=== PATIENT | male | born 1940 | race Caucasian/White ===

== ENCOUNTER 2018-10-20 21:29 | Emergency (ER) | payer MEDICARE ==
[~2018-10-20] VITALS: Ht 185.4 cm; Wt 90.7 kg
[~2018-10-20 21:29] MED LIST: ASPIRIN EC81 MG PO; IBUPROFEN400 MG PO; LISINOPRIL-HCT1 EAC2 PO; NITROSTAT0.4 MG SL; PROPRANOLOL HCL20 MG PO; XANAX0.25 MG PO; ZYRTEC10 MG PO
[2018-10-20] MEDS ORDERED: LISINOPRIL10 MG PO (21:44)
[2018-10-20] MEDS ORDERED: PROPRANOLOL HCL10 MG PO (21:45)
== END 2018-10-20 22:43 | disposition home or self-care (01) ==
LOC: ED 21:29
DX: T88.1XXA Other complications following immunization, not elsewhere classified, initial encounter (principal); R06.02 Shortness of breath; M79.602 Pain in left arm; T50.Z95A Adverse effect of other vaccines and biological substances, initial encounter; I10 Essential (primary) hypertension; Z79.899 Other long term (current) drug therapy; Z79.82 Long term (current) use of aspirin
CPT/HCPCS: 99283

== ENCOUNTER 2021-01-18 08:50 | Emergency (ER) | payer MEDICARE ==
[~2021-01-18] VITALS: Ht 185.4 cm; Wt 93.0 kg
[~2021-01-18 08:50] MED LIST changes: +LISINOPRIL10 MG PO; +PROPRANOLOL HCL10 MG PO
[2021-01-18] MEDS ORDERED: FLOMAX0.4 MG PO (09:14)
[2021-01-18] MEDS ORDERED: MONTELUKAST SOD10 MG PO (09:15)
== END 2021-01-18 10:51 | disposition home or self-care (01) ==
LOC: ED 08:50
DX: R33.9 Retention of urine, unspecified (principal); K59.00 Constipation, unspecified; I10 Essential (primary) hypertension; Z79.899 Other long term (current) drug therapy; Z79.82 Long term (current) use of aspirin
CPT/HCPCS: 51702; 51798; 80048; 81001; 99283-25

== ENCOUNTER 2021-01-21 11:10 | Emergency (ER) | payer MEDICARE ==
[~2021-01-21] VITALS: Ht 185.4 cm; Wt 93.0 kg
[~2021-01-21 11:10] MED LIST changes: +FLOMAX0.4 MG PO; +MONTELUKAST SOD10 MG PO
--- OUTSIDE RECORDS SUMMARY | 2021-01-21 11:16 | XMS ---
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 Elmer has no Care Guidelines for this patient. [place] VIS[facility] COUNT (12 [address] [facility] 2 NOTE: Visits indicate total known visits. ED/C VISIT TRACKING (12 MO.) 01/21/2021 11:[address] [facility] [facility] [place] TYPE: Emergency COMPLAINT: - CATHETER REMOVAL 01/18/2021 08:50 [facility] [place] TYPE: Emergency COMPLAINT: - URINE PROBLEM INPATIENT VISIT TRACKING (12 MO.) 01/16/2021 09:[address] [facility] [address] Kristina [facility] TYPE: Surgical Services DIAGNOSES: - Presence of left artificial hip joint - Pain in left hip - Unilateral primary osteoarthritis, left hip [id number]
== END 2021-01-21 16:47 | disposition home or self-care (01) ==
LOC: ED 11:10
PROC: 0T9B70Z Drainage of Bladder with Drainage Device, Via Natural or Artificial Opening (ICD-10-PCS; principal; 2021-01-21)
PROC: 4A0D7LZ Measurement of Urinary Volume, Via Natural or Artificial Opening (ICD-10-PCS; 2021-01-21)
DX: R33.9 Retention of urine, unspecified (principal); Z46.6 Encounter for fitting and adjustment of urinary device; I10 Essential (primary) hypertension; Z79.899 Other long term (current) drug therapy; Z79.82 Long term (current) use of aspirin; Z85.828 Personal history of other malignant neoplasm of skin
CPT/HCPCS: 51702; 51798; 99283-25

== ENCOUNTER 2021-01-26 20:46 | Emergency (ER) | payer MEDICARE ==
[~2021-01-26] VITALS: Ht 185.4 cm; Wt 90.7 kg
--- OUTSIDE RECORDS SUMMARY | 2021-01-26 20:48 | XMS ---
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 Care History Medical/Surgical 01/22/2021 [facility] - Patient is currently established with [facility]. If patient is seen in the ED during business hours. Please contact CHWs at [facility]. Care Recommendation: If this patient has had 5 or more Emergency Department visits in the last 12 months.\T\nbsp; Patient will require education on the scope and purpose of the ED as an acute care provider not a Primary Care Provider and should not be utilized for chronic conditions.\T\nbsp; These are guidelines and the provider should exercise clinical judgment when providing care. E.D. VISIT COUNT (12 MO.) 3 [facility] TOTAL 3 NOTE: Visits indicate total known visits. ED/UCC VISIT TRACKING (12 MO.) 01/26/2021 20:[address] [facility] [place] TYPE: Emergency COMPLAINT: - BLEEDING FROM PENIS 01/21/2021 11:11 [facility] [place] TYPE: Emergency COMPLAINT: - RETENTION DIAGNOSES: - Essential (primary) hypertension - shelter (current) use of aspirin - Encounter for fitting and adjustment of urinary device - Retention of urine, unspecified - Personal history of other malignant neoplasm of skin - Other nursing home (current) drug therapy 01/18/2021 08:50 [facility] TYPE: Emergency COMPLAINT: - URINE PROBLEM DIAGNOSES: - Other nursing home (current) drug therapy - Retention of urine, unspecified - Essential (primary) hypertension - 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
== END 2021-01-27 00:23 | disposition home or self-care (01) ==
LOC: ED 20:46
DX: T83.83XA Hemorrhage due to genitourinary prosthetic devices, implants and grafts, initial encounter (principal); R31.9 Hematuria, unspecified; M96.89 Other intraoperative and postprocedural complications and disorders of the musculoskeletal system; M79.89 Other specified soft tissue disorders; I10 Essential (primary) hypertension; Z85.828 Personal history of other malignant neoplasm of skin; Z79.899 Other long term (current) drug therapy; Z79.82 Long term (current) use of aspirin
CPT/HCPCS: 81001; 93971; 99284-25

== ENCOUNTER 2021-02-20 12:37 | Inpatient (IN) | payer MEDICARE ==
[~2021-02-20] VITALS: Ht 185.4 cm; Wt 91.2 kg
--- OUTSIDE RECORDS SUMMARY | 2021-02-20 12:44 | XMS ---
PreManage Notification: SHAYAN ESCOBEDO Security Tipple Mechanic Events No recent Security Events currently on file CRITERIA MET - [facility] - 2 Visits in 30 Days CARE PROVIDERS PATRICK FITZGERALD Internal Medicine 01/22/2021-Current PHONE: [phone] Elmer has no Care Guidelines for this patient. Care History Medical/Surgical 01/22/2021 [facility] - Patient is currently established with [facility]. If patient is seen in the ED during business hours. Please contact CHWs at [facility]. Care Recommendation: If this patient has had [...] providing care. E.D. VISIT COUNT (12 MO.) 4 [facility] TOTAL 4 NOTE: Visits indicate total known visits. ED/UCC VISIT TRACKING (12 MO.) 02/20/2021 12:38 [facility] [place] TYPE: Emergency COMPLAINT: - WEAKNESS, VOMITING, WHEEZING 01/26/2021 20:46 [facility] [place] TYPE: Emergency COMPLAINT: - BLEEDING FROM PENIS DIAGNOSES: - Personal history of other malignant neoplasm of skin - Other specified soft tissue disorders - Other manager long term care (current) drug therapy - Pain in left leg - long term acute care registered nurse (current) use of aspirin - Other intraoperative and postprocedural complications and disorders of the musculoskeletal system - Hemorrhage due to genitourinary prosthetic devices, implants and grafts, initial encounter - Hematuria, unspecified - Essential (primary) hypertension 01/21/2021 11:11 [facility] TYPE: Emergency COMPLAINT: - RETENTION DIAGNOSES: - Essential (primary) hypertension - long term acute care registered nurse (current) use of aspirin - Encounter for fitting and adjustment of urinary device - Retention of urine, unspecified - Personal history of other malignant neoplasm of skin - Other manager long term care (current) drug therapy 01/18/2021 08:50 [facility] TYPE: Emergency COMPLAINT: - URINE PROBLEM DIAGNOSES: - Other manager long term care (current) drug therapy - Retention of urine, unspecified - Essential (primary) hypertension - long term acute care registered nurse (current) use of aspirin - Constipation, unspecified INPATIENT VISIT TRACKING (12 MO.) 01/16/2021 09:18 [facility] Kristina [facility] TYPE: Surgical Services DIAGNOSES: - Presence of left artificial hip joint - Pain in left hip - Unilateral primary osteoarthritis, left hip [id number]
[2021-02-20] MEDS ORDERED: TRAZODONE HCL50 MG PO (13:42)
[2021-02-20] MEDS ORDERED: HYDROXYZINE HCL50 MG PO (13:42)
--- NOTE | 2021-02-20 17:03 | EKG ---
[facility] [address] [place] [address] Signed Sinus rhythm with 1st degree AV block Otherwise normal ECG When compared with ECG of 04-AUG-2017 08:52, Vent. rate has increased BY 40 BPM Confirmed by TAMELA GUTIÉRREZ MD ([id number] on 02/20/2021 5:02:57 PM Electronically Signed By: TAMELA GUTIÉRREZ MD 02/20/21 1703 PATIENT NAME: FANNYSHAYAN Electrocardiogram DATE OF : 38 PHYSICIAN: TAMELA GUTIÉRREZ MD REPORT #: [id number] REPORT IS CONFIDENTIAL AND NOT TO BE RELEASED WITHOUT AUTHORIZATION
--- NOTE | 2021-02-20 23:38 | NUR ---
ASSESSMENT COMPLETED. TELE HR SR @ 94. GCS 15, A&O X4. LUNGS CLEAR, HEART TONES REGULAR. ABD SOFT, NONTENDER, BOWEL TONES ACTIVE, PT STATES NORMAL. PT HAS CHRONIC BACK PAIN, 7/10, PRN PAIN MED PROVIDED. CMS INTACT. LEFT HIP HAS WELL HEALING SCAR. LEFT THIGH HAS LARGE, HEALING BRUISE. IV CDI, WNL, FLUSHED WELL. SCHEDULED MEDS PROVIDED. HEAT PACK PROVIDED FOR BACK. ICE WATER PROVIDED. IN ROOM. NO OTHER NEEDS AT THIS TIME. CALL LIGHT IN REACH.
--- NOTE | 2021-02-21 02:47 | NUR ---
ASSESSMENT, VS AND I&O COMPLETED. GCS 15, A&O X4. IV WNL, IV FLUIDS INFUSING PER ORDER. LUNGS CLEAR, HEART TONES REGULAR, HR SR @ 70. ABD SOFT, NONTENDER, PT STATES NORMAL, BOWEL TONES ACTIVE. HAMILTON WNL. CMS INTACT. LEFT THIGH BRUISE UNCHANGED. IN ROOM. CALL LIGHT IN REACH.
--- NOTE | 2021-02-21 04:00 | NUR ---
PT RESTING IN BED, EYES CLOSED. RR EVEN, UNLABORED. CALL LIGHT IN REACH, BED ALARM ON.
--- NOTE | 2021-02-21 04:35 | NUR ---
IN TO LET PT KNOW HIS CALLED TO CHECK IN, NO FURTHER NEEDS AT THIS TIME
--- NOTE | 2021-02-21 05:31 | NUR ---
VS AND I&O COMPLETED. PT DENIES PAIN. IV WNL, IV FLUIDS INFUSING PER ORDER. NO OTHER NEEDS AT THIS TIME. CALL LIGHT IN REACH, BED ALARM ON.
--- NOTE | 2021-02-21 07:45 | NUR ---
REPORT RECEIVED FROM NIGHT RN AND PT. CARE RESUMED. PT. IS ALERT AND ORIENTED. HE DENIES PAIN. IV SITE WNL AND FLUSHES. HAMILTON PATENT AND DRAINING CLEAR YELLOW URINE. LUNGS CLEAR THROUGHOUT. NO EDEMA PRESENT. DISCUSSED POC AND AMBULATING FREQUENTLY. PT. AGREEABLE. LEFT RESTING IN BED WITH AT BEDSIDE.
[2021-02-21] MEDS ORDERED: JOINT SUPPORT1 EACH PO (10:13)
[2021-02-21] MEDS ORDERED: IRON18 MG PO (10:13)
[2021-02-21] MEDS ORDERED: MELATIN3 MG PO (10:14)
[2021-02-21] MEDS ORDERED: ONE-A-DAY MAXI1 EACH PO (10:15)
[2021-02-21] MEDS ORDERED: SAW PALMETTO160 MG PO (10:17)
[2021-02-21] MEDS ORDERED: OMEGA-3 FISH1200 MG PO (10:17)
[2021-02-21] MEDS ORDERED: B COMPLEX1 EACH PO (10:17)
[2021-02-21] MEDS ORDERED: ZYRTEC10 MG PO (10:20)
--- NOTE | 2021-02-21 10:29 | NUR ---
patient given prn propranolol for tremors.
--- NOTE | 2021-02-21 11:44 | NUR ---
Patient just walked three laps around med/surg with this INSTRUCTOR BUSINESS EDUCATION.
--- NOTE | 2021-02-21 13:08 | NUR ---
PT ALERT, ORIENTED AND SITTING IN CHAIR WITH GIGI AT HIS SIDE. HAD SHORT VISIT, PT FELT A NEED TO WALK AND SAID HE HAD PUSHED CALL BUTTON FOR QUITE AWHILE WITH NO RESPONSE. GAVE BLESSING AND ENCOURAGEMENT AND HAD TOAN MCCRARY COME AND ATTEND TO PT. WILL FOLLOW NEEDED
--- NOTE | 2021-02-21 14:30 | NUR ---
Pt lives with hi [place]. Recent Total hip 4 weeks ago. Used walk er and cane, but no longer using. Pt walking during our assessment as he states he needs complete at least 4 laps each hour and does not wan to stop. Plans on discharge to home with tomorrow. Denies finacial issues and will dc to home with his to assist him.
--- NOTE | 2021-02-21 17:58 | NUR ---
PT. IS HERE FOR UROSEPSIS. URINE OUTPUT IS QUANITY SUFFICIENT THIS SHIFT. HAMILTON PATENT. PT. ALERT AND ORIENTED AND HAS AMBULATED WITH SBA EVERY COUPLE HOURS AROUND THE UNIT. LUNGS CLEAR. NO EDEMA PRESENT. PRESENT IN THE ROOM ALL DAY.
--- NOTE | 2021-02-21 19:41 | NUR ---
RECEIVED REPORT FROM DAY SHIFT RN. PATIENT IS RESTING IN RECLINER WATCHING TV. REMAINS IN THE ROOM. NO NEEDS NOTED. CALL LIGHT IN REACH.
--- NOTE | 2021-02-21 21:05 | NUR ---
ASSESMENT COMPLETED. VITALS TAKEN AND RECORDED. HAMILTON EMPTIED AND HAMILTON CARE COMPLETED. PATIENT DENIES ANY PAIN. INTAKE AND OUPUT RECORDED. PATIENT GIVEN PRN MEDICATION FOR TEMORS PER ORDER. PRN SLEEP MEDICATION GIVEN PER ORDER. ALL QUESTIONS ANSWER. TEA PROVIDED FOR AND PATIENT. IV INFUSING PER ORDER. NO FURTHER NEEDS NOTED. REMAINS IN THE ROOM. CALL LIGHT AND BELINGINGS WITHIN REACH.
--- NOTE | 2021-02-22 00:44 | NUR ---
PATIENT IS STRUGGLING TO REST AND APPEARS ANXIOUS. DISCUSSED OPTIONS WITH PATIENT. PATIENT GIVEN PRN MEDICATION FOR ANXIOUSNESS. PATIENT IS RESITNG IN RECLINER. REMAINS IN THE ROOM. IV INFUSING PER ORDER. NO FURTHER NEEDS NOTED. CALL LIGHT IN REACH.
--- NOTE | 2021-02-22 03:00 | NUR ---
PATIENT IS RESTING IN RECLINER WITH EYES CLOSED, RR 18. CALL LIGHT IN REACH. ASLEEP ON THE COUCH.
--- NOTE | 2021-02-22 05:19 | NUR ---
VITALS TAKEN AND RECORDED. INTAKE AND OUPUT RECORDED. NO PAIN OR NAUSEA NOTED. CALL LIGHT IN REACH.
--- NOTE | 2021-02-22 08:00 | NUR ---
REPORT RECEIVED FROM NIGHT RN AND PT. CARE RESUMED. PT. IS ALERT AND ORIENTED AND WALKING BEFORE BREAKFAST. IV SITE IS LEAKING AND IV PUMP PLACED IN STANDBY TO SEE IF HIS IV CAN BE DC'D IF DISCHARGE IS PLANNED. PT. HAS PITTING EDEMA PRESENT IN RLE THAT WAS NOT PRESENT YESTERDAY. LUNGS CLEAR. PT. DENIES PAIN. PT. EAGER TO BE DISCHARGED. DISCUSSED POC.
--- NOTE | 2021-02-22 11:57 | NUR ---
PT VERY ANXIOUS TO DC. BED IS VERY UNCOMFORTABLE, WANTING DR PASTOR TO COME. PT DID ACKNOWLEDGE THAT HIS URINE LOOKS BETTER, FEELS IMPROVEMENT. GAVE BLESSING
--- NOTE | 2021-02-22 12:19 | NUR ---
WENT INTO THE ROOM ASKED HIM IF HE WOULD LIKE TO TAKE A SHOWER AND HIS SAID HE DID HIS OWN WASH UP AND BRUSHED HIS TEETH AND WASHED HIS FACE. CHANGE LINENS ON HIS BED.
[2021-02-22] MEDS ORDERED: AUGMENTIN 875-1 EACH PO (13:25)
[2021-02-22] MEDS ORDERED: ONDANSETRON ODT4 MG SL (13:54)
--- NOTE | 2021-02-22 14:00 | NUR ---
PT. VOMITING. NOTIFIED. PRESCRIBED ZOFRAN FOR DISCHARGE.
--- NOTE | 2021-02-22 15:08 | NUR ---
ALL DISCHARGE INSTRUCTIONS REVIEWED WITH PT AND . PT. VERBALIZED UNDERSTANDING AND DEMONSTRATED TECHNIQUES FOR CARING FOR CATHETER. CATHETER BAG CHANGED. PT. LEFT WITH ALLBELONGINGS VIA WHEELCHAIR WITH AND NEEDLE STRAIGHTENER.
== END 2021-02-22 15:00 | disposition home or self-care (01) | DRG 698 ==
LOC: ED 12:37 → MS 21:00
PROVIDERS: ADMIT Internal Medicine; ATTEND Internal Medicine
DX: T83.511A Infection and inflammatory reaction due to indwelling urethral catheter, initial encounter (principal); A41.51 Sepsis due to Escherichia coli [E. coli]; E87.1 Hypo-osmolality and hyponatremia; N39.0 Urinary tract infection, site not specified; Z20.822 Contact with and (suspected) exposure to COVID-19; N40.1 Benign prostatic hyperplasia with lower urinary tract symptoms; R33.8 Other retention of urine; I10 Essential (primary) hypertension; R42 Dizziness and giddiness; G25.0 Essential tremor; F51.04 Psychophysiologic insomnia; F41.9 Anxiety disorder, unspecified; Z79.899 Other long term (current) drug therapy; Z79.82 Long term (current) use of aspirin; Z85.828 Personal history of other malignant neoplasm of skin; Z86.79 Personal history of other diseases of the circulatory system
CPT/HCPCS: 36415; 71045; 74177; 80048; 80053; 81001; 83605; 83735; 84484; 85025; 87077; 87088; 87186; 93005; 93010; 96375; 97110; 97162; 99285-25; C9803; J0696; J2060; J3480; Q0177; Q9967; U0003

== ENCOUNTER 2024-04-03 17:12 | Observation (INO) | payer MEDICARE ==
[~2024-04-03] VITALS: Ht 185.4 cm; Wt 97.0 kg
[~2024-04-03 17:12] MED LIST changes: +AUGMENTIN 875-1 EACH PO; +B COMPLEX1 EACH PO; +HYDROXYZINE HCL50 MG PO; +IRON18 MG PO; +JOINT SUPPORT1 EACH PO; +MELATIN3 MG PO; +OMEGA-3 FISH1200 MG PO; +ONDANSETRON ODT4 MG SL; +ONE-A-DAY MAXI1 EACH PO; +SAW PALMETTO160 MG PO; +TRAZODONE HCL50 MG PO
[2024-04-03] MEDS ORDERED: LINEZOLID600 MG PO (17:27)
[2024-04-03] MEDS ORDERED: IRBESARTAN75 MG PO (17:28)
[2024-04-03] MEDS ORDERED: OMEPRAZOLE40 MG PO (17:29)
[2024-04-03] MEDS ORDERED: ALBUTEROL/IPRATROPIUM 3 ML NEB INH PRN (17:30)
[2024-04-03 17:35] LABS: BASOPHILS 0.5 % (0-2); EOSINOPHILS 1.4 % (0-6); HEMATOCRIT 34.8 % (35.0-50.0); HEMOGLOBIN 11.7 g/dL (12.0-18.0); LYMPHOCYTES 9.3 % (24-44); MCH 33.3 (27-36); MCHC 33.7 g/dl (30-36); MCV 98.8 fl (81-99); MONOCYTES 12.3 % (0-12); NEUTROPHILS 76.5 % (39-80); PLATELET COUNT 354 K/uL (140-440); RBC 3.53 M/ul (4.3-5.7); RDW 12.3 (10.5-15.0)
[2024-04-03] MEDS ORDERED: ALBUTEROL SULFATE 0.5% 2.5 MG/0.5 ML VIAL INH ONE (17:45)
[2024-04-03 17:55] LABS: ALBUMIN 2.4 g/dL (3.4-5.0); ALBUMIN/GLOBULIN RATIO 0.57 (1.1-2.4); ANION GAP 12.2 (7-21); BILIRUBIN, TOTAL 0.7 ng/dL (0.2-1.0); BUN/CREATININE RATIO 12.37 (6.0-28.6); CALCIUM 8.2 mg/dL (8.5-10.1); CREATININE, SERUM 0.97 mg/dL (0.70-1.30); MAGNESIUM 1.9 mg/dL (1.8-2.4); POTASSIUM 4.2 mmol/L (3.5-5.1); PROTEIN, TOTAL 6.6 g/dL (6.4-8.2)
[2024-04-03] MEDS ORDERED: ACETAMINOPHEN 325 MG TAB PO PRN (21:15)
[2024-04-03] MEDS ORDERED: LACTATED RINGER'S 1,000 ML IV SCH (21:15)
[2024-04-03] MEDS ORDERED: hydrOXYzine pamoate 25 MG CAP PO PRN (21:15)
[2024-04-03] MEDS ORDERED: MELATONIN 3 MG TAB PO PRN (21:15)
[2024-04-03] MEDS ORDERED: LOSARTAN POTASSIUM 50 MG TAB PO SCH (21:30)
[2024-04-03 21:33] VITALS: BP 133/80
[2024-04-03] MEDS ORDERED: methylPREDNISolone SOD SUCC 125 MG/2 ML VIAL IV SCH (22:00)
--- NOTE | 2024-04-03 22:55 | NUR ---
PATIENT ARRIVED TO THE FLOOR VIA STRETCHER. PATIENT XFERED TO HOSPITAL BED FROM STRETCHER BY STAFF. PATIENTS VITALS TAKEN AND RECORDED. ADMISSION COMPLETED. ASSESMENTE COMPLETED. PM MEDS GIVEN PER ORDER. DR HERNANDEZ AT BEDSIDE. NEW ORDERS PLACED. PATIENTS IVS INFUSING PER ORDER. PATIENTS AT BEDSIDE. DISCUSSED PLAN OF CARE WITH PATIENT AND AND ALL QUESTIONS ANSWERED. PATIENT GIVEN PRN PAIN MEDICATION FOR 6/10 PAIN IN RLE. PATIENT GIVN PRN SLEEP AID PER REQUEST AND PER ORDER. PATIENT DENIES ANY FURTHER NEEDS. CALL LIGHT IN REACH. BED ALARM ON FOR SAFETY.
[2024-04-03 23:02] VITALS: BP 133/80
[2024-04-04] VITALS (8 sets, daily range): BP systolic 135–152; BP diastolic 76–90
--- NOTE | 2024-04-04 00:20 | NUR ---
PATIENT IS RESTING IN BED ON RIGHT SIDE. NO NEEDS NOTED. AT BEDSIDE AND DENIES ANY NEEDS. CALL LIGHT IN REACH. IV INFUSING PER ORDER.
[2024-04-04] MEDS ORDERED: ALBUTEROL/IPRATROPIUM 3 ML NEB INH SCH (02:00)
--- NOTE | 2024-04-04 02:47 | NUR ---
PATIENT IS RESTING IN BED. VITALS TAKEN AND RECORDED. URINAL EMPTIED. INTAKE AND OUTPUT RECORDED. PATIENT REPORTS BEING UNABLE TO SLEEP, PRN MEDS GIVEN PER ORDER. PATIENT ASSISTED TO REPOSITION ON RIGHT SIDE. PATIENT DENIES ANY FURTHER NEEDS. IV INFUSING PER ORDER. CALL LIGHT IN REACH. BED ALARM ON FOR SAFETY.
--- NOTE | 2024-04-04 04:00 | NUR ---
PATIENT IS RESTING IN BED ON RIGHT SIDE WITH EYES CLSOED, RR 16. CALL LIGHT IN REACH. IV INFUSING PER ORDER. LEFT TO GO HOME. PATIENTS BED ALARM IS ON FOR SAFETY.
[2024-04-04 05:39] LABS: BASOPHILS 0.2 % (0-2); HEMATOCRIT 30.6 % (35.0-50.0); HEMOGLOBIN 10.8 g/dL (12.0-18.0); LYMPHOCYTES 6.6 % (24-44); MCH 33.9 (27-36); MCHC 35.2 g/dl (30-36); MCV 96.2 fl (81-99); MONOCYTES 2.1 % (0-12); NEUTROPHILS 91.1 % (39-80); PLATELET COUNT 286 K/uL (140-440); RBC 3.18 M/ul (4.3-5.7); RDW 12.2 (10.5-15.0)
[2024-04-04 05:46] LABS: BUN/CREATININE RATIO 14.45 (6.0-28.6); CALCIUM 7.7 mg/dL (8.5-10.1); CREATININE, SERUM 0.83 mg/dL (0.70-1.30)
--- NOTE | 2024-04-04 06:05 | NUR ---
PATIENT ASSISTED TO THE BSC A 2PA W/FWW. PATIENT ABLE TO VOID AND HAVE LARGE SOFT BM. PATIENT IS BACK IN BED RESTING. AM MEDS GIVEN PER ORDER. IV INFUSING PER ORDER. PATIENT DENIES ANY PAIN OR SOB. PATIENT IS ON RA. PATIENTS AT BEDSIDE. PATIENT AND UPDATED ON PLAN FOR DAY AND ALL QUESTIOSN ANSWERED. NO FURTHER NEEDS NOTED. CALL LIGHT IN REACH.
--- NOTE | 2024-04-04 06:14 | NUR ---
PATIENTS FLUIDS INFUSING AND CHANGED PER ORDER.
[2024-04-04] MEDS ORDERED: SODIUM CHLORIDE 0.9% 1,000 ML IV SCH (06:15)
--- NOTE | 2024-04-04 07:10 | NUR ---
RECEIVED REPORT FROM NAVID MORGAN. ASSUMING CARE OF PT. PT AWAKE IN BED, AT THE BEDSIDE. PT STATES NO CURRENT NEEDS, CALL LIGHT WITHIN REACH.
[2024-04-04] MEDS ORDERED: SODIUM CHLORIDE 1 GM TAB PO ONE (07:15)
--- NOTE | 2024-04-04 08:06 | NUR ---
Board has been updated and call light has been placed within reach.
--- NOTE | 2024-04-04 08:08 | NUR ---
PT AWAKE IN BED, AT THE BEDSIDE. PT TAKES PO MEDICATION W/O DIFFICULTY. RT TO BEDSIDE FOR SCHEDULED TREATMENT, PT TOLERATES WELL. HEART TONES WNL AT THIS TIME. PT CONTINUES TO HAVE CALF TENDERNESS, BUT PT STATES IT IS "BETTER TODAY THAN BEFORE". RIGHT CALF EDEMA HAS DECREASED TO +1 PITTING, R ANKLE AND FOOT REMAIN AT +2 PITTING EDEMA. BAND AID ON R KNEE REMAINS IN PLACE FROM WASH OUT PROCEDURE COMPLETED 9 DAYS AGO, PT STATES BAND AIDS WERE CHANGED TWO DAYS AGO, STATES THEY WILL NEED TO BE CHANGED TODAY. PT SITTING UP IN BED TO EAT BREAKFAST, STATES NO NEEDS AT THIS TIME, CALL LIGHT WITHIN REACH.
[2024-04-04] MEDS ORDERED: ENOXAPARIN SODIUM 40 MG/0.4 ML SYR SUB-Q SCH (09:00)
--- NOTE | 2024-04-04 10:04 | NUR ---
UR CLINICAL REVIEW: 2 MN FOR [facility]ERSAL[facility]- [facility] CRITERIA MEDICARE OBS 04/03/24 @ 1713 NO AUTH NEEDED PER MEDICARE GUIDELINES DISCHARGE TO HOME WHEN STABLE
--- NOTE | 2024-04-04 10:12 | NUR ---
WORKING WITH PT AND OT. WILL RETURN TO COMPLETE ASSESSMENT.
[2024-04-04 10:27] LABS: ANION GAP 14.7 (7-21); BUN/CREATININE RATIO 13.97 (6.0-28.6); CALCIUM 7.9 mg/dL (8.5-10.1); CREATININE, SERUM 0.93 mg/dL (0.70-1.30); POTASSIUM 3.7 mmol/L (3.5-5.1)
--- NOTE | 2024-04-04 10:53 | NUR ---
PT RECEIVING NURSING CARE DURING SPIRITUAL CARE ROUNDS. DID NOT INTERRUPT. PROVIDED PRAYER.
[2024-04-04] MEDS ORDERED: METHYLPREDNISOLO4 M1 PO (11:20)
--- NOTE | 2024-04-04 11:40 | NUR ---
PT UP TO CHAIR DRESSING IN OWN CLOTHES WITH ASSISTANCE FROM AND SWEATBAND SHAPER. PT STATES NO NEEDS AT THIS TIME, CALL LIGHT WITHIN REACH.
--- NOTE | 2024-04-04 11:46 | NUR ---
PT CALLED NEEDED HELP USING THE URINAL. HELPED PT CHANGE INTO HIS CLOTH. PT DIDNT NEED ANYTHING ELSE AND CALL LIGHT IS WITHIN REACH.
[2024-04-04] MEDS ORDERED: PHARMACY RENAL DOSE ADJUSTMENT 1 DOSE MISC PO SCH (12:00)
[2024-04-04] MEDS ORDERED: FLOMAX0.4 MG PO (12:13)
[2024-04-04] MEDS ORDERED: SILDENAFIL20 MG PO (12:14)
--- NOTE | 2024-04-04 12:20 | NUR ---
PATIENT ALERT AND ORIENTED IN RECLINER, IN ROOM WELL. DEMOGRAPHICS VERIFIED WITH PATIENT. LIVES IN SINGLE LEVEL HOME, NO STEPS TO GET IN. DME INCLUDES WALKING STICK, CANE AND WALKER. STATES HE NORMALLY DRIVES BUT HAS BEEN UNABLE TO DRIVE RECENTLY DUE TO WEAKNESS AND CURRENT ILLNESS. STATES HIS CAN CURRENTLY PROVIDE TRANSPORTATION WHEN NEEDED. PATIENT STATES HE AND HAVE NO FINANCIAL HARDSHIP. ARE ABLE TO OBTAIN FOOD, MEDICATIONS AND PAY UTILITIES WITHOUT DIFFICULTY. DISCUSSED HOME HEALTH WITH PATIENT AND SPOUSE. THEY PREFER [facility]. REFERRAL AND ORDERS FAXED TO [facility].
--- NOTE | 2024-04-04 12:28 | NUR ---
MED REC COMPLETE
--- NOTE | 2024-04-04 13:00 | NUR ---
PT DRESSED IN OWN CLOTHES, VSS, IV DC'D WNL. PT LEAVING WITH ALL BELONGINGS. PT AT THE BEDSIDE. DISCHARGE PACKET AND EDUCATION GIVEN TO PT AND , PT REQUESTS THAT SIGN DISCHARGE PACKET PAPER D/T HIS TREMORS PREVENTING HIM FROM SIGNING. PT AMBULATES TO WHEELCHAIR WITH FWW AND 1PA. PT WHEELED TO FROM OF BUILDING BY NURSING PERSONEL.
--- NOTE | 2024-04-04 17:15 | EKG ---
[facility] [address] [facility] [facility] [place] [address] Signed Sinus rhythm with 1st degree AV block Otherwise normal ECG When compared with ECG of 26-AUG-2021 10:45, Vent. rate has increased BY 27 BPM Confirmed by CLEMENT HERNANDEZ MD ([id number]) on 04/04/2024 5:14:57 PM Electronically Signed By: CLEMENT HERNANDEZ 04/04/24 1715 PATIENT NAME: FANNYSHAYAN Electrocardiogram DATE OF : 38 PHYSICIAN: CLEMENT HERNANDEZ REPORT #: [id number] REPORT IS CONFIDENTIAL AND NOT TO BE RELEASED WITHOUT AUTHORIZATION
[2024-04-04] MEDS ORDERED: LOSARTAN POTASSIUM 50 MG TAB PO SCH (18:00)
== END 2024-04-04 13:00 | disposition home or self-care (01) ==
LOC: ED 17:12 → MS 17:13
PROVIDERS: Emergency Medicine; ADMIT Internal Medicine; ATTEND Internal Medicine
DX: E87.1 Hypo-osmolality and hyponatremia (principal); G47.30 Sleep apnea, unspecified; R53.81 Other malaise; I10 Essential (primary) hypertension; Z79.899 Other long term (current) drug therapy; R60.0 Localized edema
CPT/HCPCS: 36415; 71045; 71260; 80048; 80053; 83735; 83880; 84484; 85025; 85379; 93005; 93010; 93971; 94640; 96372; 96374; 96376; 97162; 97166; 99285-25; A9270; G0378; J1650; J2919; J7030; J7121; Q0177; Q9967

== ENCOUNTER 2024-04-22 16:41 | Emergency (ER) | payer MEDICARE ==
[~2024-04-22] VITALS: Ht 185.4 cm; Wt 90.9 kg
[~2024-04-22 16:41] MED LIST changes: +IRBESARTAN75 MG PO; +LINEZOLID600 MG PO; +METHYLPREDNISOLO4 M1 PO; +OMEPRAZOLE40 MG PO; +SILDENAFIL20 MG PO
[2024-04-22] MEDS ORDERED: SODIUM CHLORIDE 0.9% 1,000 ML IV ONE (17:15)
[2024-04-22 17:23] LABS: BASOPHILS 0.2 % (0-2); EOSINOPHILS 0.4 % (0-6); HEMATOCRIT 25.6 % (35.0-50.0); LYMPHOCYTES 8.8 % (24-44); MCH 33.8 (27-36); MCHC 35.1 g/dl (30-36); MCV 96.3 fl (81-99); MONOCYTES 16.5 % (0-12); NEUTROPHILS 74.1 % (39-80); PLATELET COUNT 141 K/uL (140-440); RBC 2.66 M/ul (4.3-5.7); RDW 11.8 (10.5-15.0)
[2024-04-22 17:39] LABS: ALBUMIN 2.9 g/dL (3.4-5.0); ALBUMIN/GLOBULIN RATIO 0.76 (1.1-2.4); ANION GAP 13.3 (7-21); BILIRUBIN, TOTAL 0.5 ng/dL (0.2-1.0); BUN/CREATININE RATIO 12.33 (6.0-28.6); CREATININE, SERUM 1.54 mg/dL (0.70-1.30); POTASSIUM 4.3 mmol/L (3.5-5.1); PROTEIN, TOTAL 6.7 g/dL (6.4-8.2)
[2024-04-22 18:27] VITALS: BP 121/79
--- NOTE | 2024-04-23 13:48 | EKG ---
[facility] [address] [facility] [place] [address] Signed Sinus rhythm with premature atrial complexes Otherwise normal ECG When compared with ECG of 03-APR-2024 18:02, premature atrial complexes are now present Confirmed by Hung Ramirez MD ([id number]) on 04/23/2024 1:47:55 PM Electronically Signed By: HUNG RAMIREZ 04/23/24 1348 PATIENT NAME: FANNYSHAYAN Electrocardiogram DATE OF : 38 PHYSICIAN: HUNG RAMIREZ REPORT #: [id number] REPORT IS CONFIDENTIAL AND NOT TO BE RELEASED WITHOUT AUTHORIZATION
== END 2024-04-22 18:28 | disposition home or self-care (01) ==
LOC: ED 16:41
PROVIDERS: Emergency Medicine
DX: R53.1 Weakness (principal); M00.9 Pyogenic arthritis, unspecified; I10 Essential (primary) hypertension; Z79.899 Other long term (current) drug therapy
CPT/HCPCS: 36415; 80053; 85025; 93005; 93010; 99285; J7030